=== PATIENT | male | born 1985 | race Caucasian/White ===

== ENCOUNTER 2024-06-08 14:28 | Emergency (ER) | payer OTHER ==
[2024-06-08] MEDS ORDERED: Lactated Ringers 1,000 ML IV ONE (17:15)
[2024-06-08] MEDS ORDERED: Midazolam 1 MG/ML 2 ML SDV ONE (17:15)
[2024-06-08] MEDS ORDERED: Propofol 200 MG/20 ML SDV ONE ×2 (17:15→17:37)
[2024-06-08] MEDS ORDERED: Glycopyrrolate 0.2 MG/ML SDV ONE (17:29)
[2024-06-08] MEDS ORDERED: dexmedeTOMIDine HCl 200 MCG/2 ML SDV ONE (17:34)
[2024-06-08] MEDS ORDERED: fentaNYL 250 MCG/5 ML SDV ONE (17:36)
== END 2024-06-08 18:56 | disposition home or self-care (01) ==
LOC: JD.ED 14:28
DX: S82.841A Displaced bimalleolar fracture of right lower leg, initial encounter for closed fracture (principal); W23.0XXA Caught, crushed, jammed, or pinched between moving objects, initial encounter; Y99.0 Civilian activity done for income or pay
CPT/HCPCS: 27810; 73600; 73610; 99152; 99283; J1596; J2250; J2704; J3010; J7120; 01462; 36410; 99140; 99284; J3490